=== PATIENT | male | born 1970 | race African-American/Black ===

== ENCOUNTER 2020-02-14 12:19 | Inpatient (IN) | payer OTHER ==
--- NOTE | 2020-02-14 12:49 | BHS.RME ---
Substance Use & Tx History - Substance Use History Alcohol Substance amount: 1-2 pints of Whiskey or Vodka, 4-5 beers of 12 ounces each Frequency of use: Daily Substance route: Oral Date of Last Use: 02/13/20 (First use age 18y. No seizures. Many blackouts, last was last night. 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) Cocaine- Powder Substance amount: $20 to $40 twice a year Frequency of use: Less than 5 times a year Substance route: Inhalation (ex: sniffing or snorting) Date of Last Use: 01/31/20 (First use age 18 y) Nicotine Substance amount: one pack Frequency of use: Daily Substance route: Smoking Date of Last Use: 02/14/20 (First use age 18y) - Last Treatment Date of last treatment: This is his first detox Physical/Psych/Mental Status - Behavior General Behavior: Increased activity (restlessness, agitation) Eye Contact: Normal - Cooperativeness Cooperativeness: Cooperative - Thinking Thought Processes: Tight Thought content: Future oriented - Physical Health Problems Is patient presently having any pain?: No Does patient presently have any injuries (include location): No Does patient currently have a fever: No CIWA Nausea/Vomitin Muscle Tremors: 3 Anxiety: 3 Agitation: 1-Slight > Activity Paroxysmal Sweats: 4-Forehead w/Sweat Beads Orientation: 0-Oriented Tacttile Disturbances: 0-None Auditory Disturbances: 0-None Visual Disturbances: 0-None Headache: 3-Moderate CIWA-Ar Total Score: 17
--- NOTE | 2020-02-14 13:30 | HP ---
CIWA Score Nausea/Vomitin Muscle Tremors: 3 Anxiety: 5 Agitation: 2 Paroxysmal Sweats: 5 Orientation: 0-Oriented Tacttile Disturbances: 0-None Auditory Disturbances: 0-None Visual Disturbances: 0-None Headache: 3-Moderate CIWA-Ar Total Score: 21 - Admission Criteria OASAS Guidelines: Admission for Medically Managed Detox: Requires at least one of the followin. CIWA greater than 12 2. Seizures within the past 24 hours 3. Delirium tremens within the past 24 hours 4. Hallucinations within the past 24 hours 5. Acute intervention needed for co occurring medical disorder 6. Acute intervention needed for co occurring psychiatric disorder 7. Severe withdrawal that cannot be handled at a lower level of care (continued vomiting, continued diarrhea, abnormal vital signs) requiring intravenous medication and/or fluids 8. Admitting History and Physical - Admission Chief Complaint: " I want to get clean from alcohol." History of Present Illness: Patient is a 49 y/o M who presents to [facility] for alcohol detox. Patient endorses he drinks between 1-2 pints of whiskey or vodka daily, also supplements with ~5 cans of 12 oz beer. Last drink was last night ~8 pm. Patient denies the need for an eye industrial education teacher. Age at first use 18 years of age. Patient states he sometimes "blacks out" after a long night of drinking. Denies any h/o seizures. Furthermore, patient states he uses cocaine at random times; uses cocaine approximately twice per year. First use of cocaine was 18 years of age and last use was 2 weeks ago. PMH- Asthma, borderline DM, Emphysema. Patient diagnosed and treated for pneumonia ~1 month ago ([facility], COVID Negative) Social: Alcol/Cocaine per HPI. Smokes cigarettes ~ 1PPD (started at 18 years old). FH- Denies SurgHx- Denies NKDA Substance Use & Tx History - Substance Use History Alcohol Substance amount: 1-2 pints of Whiskey or Vodka, 4-5 beers of 12 ounces each Frequency of use: Daily Substance route: Oral Date of Last Use: 02/13/20 (First use age 18y. No seizures. Many blackouts, last was last night. No eye industrial education teacher) Cocaine- Powder Substance amount: $20 to $40 twice a year Frequency of use: Less than 5 times a year Substance route: Inhalation (ex: sniffing or snorting) Date of Last Use: 01/31/20 (First use age 18 y) Nicotine Substance amount: one pack Frequency of use: Daily Substance route: Smoking Date of Last Use: 02/14/20 (First use age 18y) - Last Treatment Date of last treatment: This is his first detox - Past Medical History Pulmonary: Yes: Asthma, Other (Emphysema) - Past Surgical History Past Surgical History: No: None, AAA Repair, AICD, Amputation, Appendectomy, Arthrosocopy, AV Fistula/Graft, Bariatric Surgery, Breast Biopsy, Bypass, CABG, Carotid Endarterectomy, Cataract Removal, Cholecystectomy, Colectomy, Colonoscopy, Colostomy, Craniotomy, , Cystectomy, Hernia Repair, Hysterectomy, Ileal Conduit, Ileosotomy, Joint Replacement, Kidney Transplant, Laminectomy, Liver Transplant, Mastectomy, Nephrectomy, Oopherectomy, Orchiectomy, Permanent Pacemaker, Prostatectomy, Splenectomy, Stent, Thoracotomy, TURP, Tonsillectomy, Tubal Ligation, Upper Endoscopy, Valve Replacement, Vasectomy, Vein Stripping/Ligation Admission ROS S - [facility] Allergies/Adverse Reactions: Allergies Allergy/AdvReac Type Severity Reaction Status Date / Time No Known Allergies Allergy Unverified 02/23/13 16:20 Exam Limitations: No Limitations - Ebola screening Have you traveled outside of the country in the last 21 days: No Have you had contact with anyone from an Ebola affected area: No Have you been sick,other than usual withdrawal symptoms: No Do you have a fever: No - Review of Systems Constitutional: No Symptoms Reported EENT: reports: No Symptoms Reported Respiratory: reports: No Symptoms reported Cardiac: reports: No Symptoms Reported GI: reports: No Symptoms Reported : reports: No Symptoms Reported Musculoskeletal: reports: No Symptoms Reported Integumentary: reports: Sweating Neuro: reports: Headache Endocrine: reports: No Symptoms Reported Hematology: reports: No Symptoms Reported Psychiatric: reports: Orientated x3 Patient History - Smoking Cessation Smoking history: Current every day smoker Have you smoked in the past 12 months: Yes Aproximately how many cigarettes per day: 20 Hx Chewing Tobacco Use: No Initiated information on smoking cessation: Yes 'Breaking Loose' booklet given: 02/14/20 Admission Physical Exam S - Physical General Appearance: Yes: Within Normal Limits HEENTM: Yes: EOMI, Hearing grossly Normal, Normal ENT Inspection, Normocephalic, Normal Voice, Pharynx Normal Respiratory: Yes: Chest Non-Tender, Lungs Clear, Normal Breath Sounds, No Respiratory Distress, No Accessory Muscle Use Neck: Yes: Within Normal Limits, No masses,lesions,Nodules, Supple Cardiology: Yes: Regular Rhythm, Regular Rate, S1, S2 Abdominal: Yes: Normal Bowel Sounds, Non Tender, Flat, Soft Musculoskeletal: Yes: full range of Motion, Gait Steady. No: Back pain, Joint Stiffness, Joint swelling Extremities: Yes: Within Normal Limits, Normal Inspection, Normal Range of Motion, Non-Tender, Tremors Neurological: Yes: Within Normal Limits, marble coper II-XII NML intact, Fully Oriented, Alert, Motor Strength 5/5, Normal Mood/Affect, Normal Response Integumentary: Yes: Within Normal Limits, Normal Color, Diaphoresis Lymphatic: Yes: Within Normal Limits - Diagnostic (1) Alcohol abuse Current Visit: Yes Status: Acute (2) Asthma Current Visit: Yes Status: Acute (3) Cocaine abuse Current Visit: Yes Status: Acute Cleared for Admission [facility] - Detox or Rehab [facility] Level of Care: Medically Managed Detox Regimen/Protocol: Librium Breathalyzer - Breathalyzer Breathalyzer: 0.051 Urine Drug Screen - Test Device Lot number: [id number] Expiration date: 03/24/21 - Control Is test valid?: Yes - Results Drug screen NEGATIVE: Yes Inpatient Rehab Admission - Rehab Decision to Admit Inpatient rehab admission?: No
[2020-02-14] MEDS ORDERED: NICOTINE POLACRILEX 2 MG GUM BUC PRN (13:48)
[2020-02-14] MEDS ORDERED: BISMUTH SUBSALICYLATE 524 MG/30 ML UD PO PRN (13:48)
[2020-02-14] MEDS ORDERED: ACETAMINOPHEN 325 MG TABLET (FP) PO PRN ×2 (13:48)
[2020-02-14] MEDS ORDERED: MAGNESIUM HYDROX 2400MG/30ML ORAL SUSPENSION 30 ML CUP PO PRN (13:48)
[2020-02-14] MEDS ORDERED: METHOCARBAMOL 500 MG TABLET PO PRN (13:48)
[2020-02-14] MEDS ORDERED: MAG HYDROX/AL HYDROX/SIMETH 30 ML UNIT-DOSE CUP PO PRN (13:48)
[2020-02-14] MEDS ORDERED: MAGNESIUM CITRATE 300 ML BOTTLE PO PRN (13:48)
[2020-02-14] MEDS ORDERED: IBUPROFEN 400 MG TABLET (FP) PO PRN (13:48)
[2020-02-14] MEDS ORDERED: MENTHOL/PHENOL 1 EACH UD MM PRN (13:48)
[2020-02-14] MEDS ORDERED: chlordiazePOXIDE HCL 25 MG CAPSULE PO PRN (13:51)
[2020-02-14] MEDS ORDERED: ALBUTEROL SO4 0.083% IH SOL 2.5 MG/3 ML VIAL.NEB. NEB PRN (14:11)
[2020-02-14 14:41] VITALS: BMI 28.8
[2020-02-14] MEDS ORDERED: ONDANSETRON *ODT* 4 MG TABLET SL ONE (15:00)
[2020-02-14] MEDS ORDERED: TUBERCULIN PPD 5 TU/0.1ML VIAL ID ONE (15:53)
[2020-02-14] MEDS: NICOTINE 7 MG/24 HOURS TOPICAL PATCH TD SCH (16:04)
[2020-02-14] MEDS: PRENATAL VITAMINS W/ FOLIC ACID TABLET (FP) PO SCH (16:08)
[2020-02-14] MEDS: chlordiazePOXIDE HCL 25 MG CAPSULE PO SCH ×2 (16:09→22:37)
[2020-02-14] MEDS: hydrOXYzine PAMOATE 25 MG CAPSULE (FP) PO SCH ×3 (16:09→22:37)
[2020-02-14 17:26] LABS: HEMATOCRIT 44.4 % (35.4-49); HEMOGLOBIN 14.8 GM/dL (11.7-16.9); MCH 31.8 pg (25.7-33.7); MCHC 33.3 g/dl (32.0-35.9); MEAN CELL VOLUME 95.6 fl (80-96); MEAN PLT VOLUME 9.9 fl (7.5-11.1); PLATELET COUNT 202 K/MM3 (134-434); RBC 4.64 M/mm3 (4.00-5.60); WHITE BLOOD COUNT 7.4 K/mm3 (4.0-10.0)
[2020-02-14 17:31] LABS: ALBUMIN 3.8 g/dl (3.4-5.0); BILIRUBIN,TOTAL 0.5 mg/dL (0.2-1); BLOOD UREA NITROGEN 17.4 mg/dL (7-18); CALCIUM 8.7 mg/dL (8.5-10.1); CREATININE 1.2 mg/dL (0.55-1.3); POTASSIUM 4.3 mmol/L (3.5-5.1); TOT PROT 7.4 g/dl (6.4-8.2)
[2020-02-14] MEDS ORDERED: THIAMINE HCL 100 MG TABLET (FP) PO SCH (22:00)
[2020-02-14] MEDS ORDERED: MELATONIN 5 MG TABLETS PO SCH (22:00)
[2020-02-14] MEDS: MOMETASONE FUROATE 220 MCG/IH INHALER IH SCH (22:40)
[2020-02-15] MEDS: hydrOXYzine PAMOATE 25 MG CAPSULE (FP) PO SCH ×4 (06:23→18:23)
[2020-02-15] MEDS: chlordiazePOXIDE HCL 25 MG CAPSULE PO SCH ×3 (06:23→18:24)
[2020-02-15] MEDS: PRENATAL VITAMINS W/ FOLIC ACID TABLET (FP) PO SCH (10:50)
[2020-02-15] MEDS: NICOTINE 7 MG/24 HOURS TOPICAL PATCH TD SCH (10:51)
--- NOTE | 2020-02-15 11:20 | EKG ---
Test Reason : Blood Pressure : / mmHG Vent. Rate : 081 BPM Atrial Rate : 081 BPM P-R Int : 144 ms QRS Dur : 082 ms QT Int : 352 ms P-R-T Axes : -23 070 043 degrees QTc Int : 408 ms NORMAL SINUS RHYTHM NORMAL ECG NO PREVIOUS ECGS AVAILABLE Confirmed by ELSA CAN MD ([id number]) on 02/15/2020 11:20:14 AM Referred By: Confirmed By:ELSA CAN MD
[2020-02-15] MEDS: MOMETASONE FUROATE 220 MCG/IH INHALER IH SCH (14:12)
--- NOTE | 2020-02-15 14:37 | PN ---
[facility] CIWA - CIWA Score Nausea/Vomitin-No Nausea/No Vomiting Muscle Tremors: 2 Anxiety: 4-Mod. Anxious/Guarded Agitation: 2 Paroxysmal Sweats: 3 Orientation: 0-Oriented Tacttile Disturbances: 0-None Auditory Disturbances: 0-None Visual Disturbances: 0-None Headache: 0-None Present CIWA-Ar Total Score: 11 S Progress Note (SOAP) Subjective: Anxiety sweats intermittent sleep Objective: 02/15/20 14:32 Vital Signs - 24 hr 02/14/20 02/14/20 02/14/20 14:34 15:15 16:56 Temperature 98.2 F 98.4 F 98.2 F Pulse Rate 82 79 89 Respiratory 18 18 18 Rate Blood Pressure 125/77 139/82 128/70 O2 Sat by Pulse 96 Oximetry (%) 02/14/20 02/14/20 02/15/20 20:49 21:47 07:01 Temperature 97.3 F L 96.9 F L Pulse Rate 73 60 Respiratory 18 18 Rate Blood Pressure 115/71 125/76 O2 Sat by Pulse 95 97 Oximetry (%) Laboratory Tests 02/14/20 02/14/20 02/14/20 14:00 14:15 14:15 WBC 7.4 RBC 4.64 Hgb 14.8 Hct 44.4 MCV 95.6 MCH 31.8 MCHC 33.3 RDW 13.0 Plt Count 202 MPV 9.9 Sodium 138 Potassium 4.3 Chloride 105 Carbon Dioxide 22 Anion Gap 10 BUN 17.4 Creatinine 1.2 Est GFR (CKD-EPI)AfAm 82.96 Est GFR (CKD-EPI)NonAf 71.58 Random Glucose 102 Calcium 8.7 Total Bilirubin 0.5 AST 29 ALT 59 Alkaline Phosphatase 65 Total Protein 7.4 Albumin 3.8 Syphilis Serology HIV Ag/Ab Combo Qual Negative 02/14/20 14:15 WBC RBC Hgb Hct MCV MCH MCHC RDW Plt Count MPV Sodium Potassium Chloride Carbon Dioxide Anion Gap BUN Creatinine Est GFR (CKD-EPI)AfAm Est GFR (CKD-EPI)NonAf Random Glucose Calcium Total Bilirubin AST ALT Alkaline Phosphatase Total Protein Albumin Syphilis Serology Non-reactive HIV Ag/Ab Combo Qual covid-19 result pending Alert o x 3 nad Pt seen in bed during rounds and communicated needs coherently. 02/15/20 14:37 Assessment: 02/15/20 14:37 withdrawal sx Plan: cont detox increase po fluids maintain safety
[2020-02-15 18:23] VITALS: BP 146/80; PULSE 73; TEMP 98.2
--- NOTE | 2020-02-15 20:00 | PN ---
[facility] Progress [facility] Note: Patient states detox was not what he expected. C/o confrontation w/ social research assistant because of inability to decide future plans r/t AUD and perceived "judgmental attitude". Able to discuss w/ patient program needs in terms of early application submission for rehab to secure a bed and that applying is not a commitment. Fernando neal verbalizing, in a loud voice, that decisions are too early to be made. Discussed importance of not leaving and continuing to treat alcohol disorder and that early discharge, especially in an anxious state, could trigger relapse. Patient states "I don't feel like drinking. I just want to leave." Vital Signs 02/15/20 16:52 Temperature 98.2 F Pulse Rate 73 Respiratory 19 Rate Blood Pressure 146/80 Discussed the relationship of alcohol use and nicotine. Patient declined prescriptions for NRT. Encouraged to consider community support program or re-consider detox attempt in the future. Patient insists on leaving AMA.
--- NOTE | 2020-02-15 20:39 | DS ---
[facility] Detox Discharge Summary Admission Date: 02/14/20 Discharge Date: 02/15/20 - History Present History: Alcohol Dependence, Cocaine Dependence Pertinent Past History: PMH- Asthma, borderline DM, Emphysema. Patient diagnosed and treated for pneumonia ~1 month ago ([facility], COVID Negative) Social: Alcohol/Cocaine use disorder. Smokes cigarettes ~ 1PPD - Physical Exam Results Vital Signs: Vital Signs Temperature 98.2 F 02/15/20 16:52 Pulse Rate 73 02/15/20 16:52 Respiratory Rate 19 02/15/20 16:52 Blood Pressure 146/80 02/15/20 16:52 O2 Sat by Pulse Oximetry (%) 96 02/15/20 14:10 Pertinent Admission Physical Exam Findings: Patient admitted to detox for treatment alcohol withdrawal symptoms. Co-occurring cocaine use disorder, nicotine use disorder. Laboratory Last Values WBC 7.4 K/mm3 (4.0-10.0) 02/14/20 14:15 RBC 4.64 M/mm3 (4.00-5.60) 02/14/20 14:15 Hgb 14.8 GM/dL (11.7-16.9) 02/14/20 14:15 Hct 44.4 % (35.4-49) 02/14/20 14:15 MCV 95.6 fl (80-96) 02/14/20 14:15 MCH 31.8 pg (25.7-33.7) 02/14/20 14:15 MCHC 33.3 g/dl (32.0-35.9) 02/14/20 14:15 RDW 13.0 % (11.9-15.9) 02/14/20 14:15 Plt Count 202 K/MM3 (134-434) 02/14/20 14:15 MPV 9.9 fl (7.5-11.1) 02/14/20 14:15 Sodium 138 mmol/L (136-145) 02/14/20 14:15 Potassium 4.3 mmol/L (3.5-5.1) 02/14/20 14:15 Chloride 105 mmol/L (98-107) 02/14/20 14:15 Carbon Dioxide 22 mmol/L (21-32) 02/14/20 14:15 Anion Gap 10 MMOL/L (8-16) 02/14/20 14:15 BUN 17.4 mg/dL (7-18) 02/14/20 14:15 Creatinine 1.2 mg/dL (0.55-1.3) 02/14/20 14:15 Est GFR (CKD-EPI)AfAm 82.96 02/14/20 14:15 Est GFR (CKD-EPI)NonAf 71.58 02/14/20 14:15 Random Glucose 102 mg/dL (74-106) 02/14/20 14:15 Calcium 8.7 mg/dL (8.5-10.1) 02/14/20 14:15 Total Bilirubin 0.5 mg/dL (0.2-1) 02/14/20 14:15 AST 29 U/L (15-37) 02/14/20 14:15 ALT 59 U/L (13-61) 02/14/20 14:15 Alkaline Phosphatase 65 U/L (45-117) 02/14/20 14:15 Total Protein 7.4 g/dl (6.4-8.2) 02/14/20 14:15 Albumin 3.8 g/dl (3.4-5.0) 02/14/20 14:15 Syphilis Serology Non-reactive (NONREACTIVE) 02/14/20 14:15 HIV Ag/Ab Combo Qual Negative (NEGATIVE) 02/14/20 14:00 Labs reviewed. - Treatment Hospital Course: Discharged Condition Good (Alert and oriented. Vital signs stable. Gait steady. Resp quiet and unlabored. Patient declined NRT.) - Medication Discharge Medications: Ambulatory Orders Albuterol 0.083% Nebulizer Melani [Ventolin 0.083%] 1 neb NEB Q4H PRN 02/14/20 Fluticasone Propionate [Flovent Diskus] 220 mcg IH BID 02/14/20 - Diagnosis (1) Alcohol dependence with withdrawal, uncomplicated Status: Acute (2) Cocaine dependence, uncomplicated Status: Chronic (3) Nicotine dependence, unspecified, uncomplicated Status: Chronic Qualifiers: Nicotine product type: cigarettes Qualified Code(s): F17.210 - Nicotine dependence, cigarettes, uncomplicated (4) Asthma Status: Chronic Qualifiers: Asthma severity: unspecified severity Asthma persistence: unspecified Asthma complication type: unspecified Qualified Code(s): J45.909 - Unspecified asthma, uncomplicated - AMA Did Patient Leave Against Medical Advice: Yes
[2020-02-16] MEDS ORDERED: chlordiazePOXIDE HCL 25 MG CAPSULE PO SCH (05:00)
[2020-02-17] MEDS ORDERED: chlordiazePOXIDE HCL 10 MG CAPSULE PO PRN
[2020-02-17] MEDS ORDERED: chlordiazePOXIDE HCL 10 MG CAPSULE PO SCH (05:00)
[2020-02-18] MEDS ORDERED: chlordiazePOXIDE HCL 10 MG CAPSULE PO SCH (05:00)
[2020-02-19] MEDS ORDERED: chlordiazePOXIDE HCL 10 MG CAPSULE PO ONE (05:00)
== END 2020-02-15 20:42 | disposition home or self-care (01) | DRG 774 ==
LOC: YASAS 12:19 → Y5N DETOX 14:35
PROVIDERS: ADMIT Allergy & Immunology; ATTEND Allergy & Immunology
PROC: HZ2ZZZZ Detoxification Services for Substance Abuse Treatment (ICD-10-PCS; principal; 2020-02-14)
DX: F10.230 Alcohol dependence with withdrawal, uncomplicated (principal); F14.20 Cocaine dependence, uncomplicated; F17.210 Nicotine dependence, cigarettes, uncomplicated; J43.9 Emphysema, unspecified; J45.909 Unspecified asthma, uncomplicated; R73.03 Prediabetes; Z87.01 Personal history of pneumonia (recurrent)
CPT/HCPCS: 36415; 80053; 85027; 86780; 87389; 93005; 93010; U0003